=== PATIENT | female | born 1965 | race Caucasian/White ===

== ENCOUNTER 2021-05-19 10:00 | Observation (INO) ==
[2021-08-05] MEDS ORDERED: Furosemide 20 MG TABLET PO PRN (12:39)
[2021-08-05] MEDS ORDERED: Acetaminophen 325 MG TABLET PO PRN (12:48)
[2021-08-05 13:27] LABS: Basophils % 0.3 %; Eosinophils # 0.1 K/mcL (0.0-0.6); Eosinophils % 1.3 %; Hematocrit 40.7 % (35.3-44.9); Hemoglobin 14.2 g/dL (11.5-15.4); Immature Granulocytes % 0.3 % (0-4); Lymphocytes # 1.6 K/mcL (0.6-4.6); Lymphocytes % 24.6 %; Mean Corpuscular HGB Conc 34.9 g/dL (31.6-35.5); Mean Corpuscular Hemoglobin 31.8 pg (28.0-33.3); Mean Corpuscular Volume 91.1 fL (83.0-100.0); Mean Platelet Volume 8.6 fL (9.4-12.4); Monocytes # 0.4 K/mcL (0.0-1.3); Monocytes % 5.8 %; Neutrophils # 4.3 K/mcL (1.6-8.9); Platelet Count 255 K/mcL (140-400); Red Blood Count 4.47 M/mcL (3.82-4.97); Red Cell Distribution Width 12.4 % (11.5-14.5); Segmented Neutrophils % 67.7 %; White Blood Count 6.4 K/mcL (4.3-11.1)
[2021-08-05 14:09] LABS: BUN/Creatinine Ratio 19 (6-26); Blood Urea Nitrogen 16 mg/dL (6-20); Calcium 9.5 mg/dL (8.6-10.3); Carbon Dioxide 26 mEq/L (23-29); Chloride 100 mEq/L (98-107); Glucose 140 mg/dL (70-105); Osmolality,Calculated 285 (280-300); Potassium 3.5 mEq/L (3.5-5.1); Sodium 136 mEq/L (136-145); eGFR For African Americans > 60 (> 60); eGFR For Non-African Americans > 60 (> 60)
[2021-08-05] MEDS: Apixaban 5 MG TABLET PO SCH (22:04)
[2021-08-05] MEDS: DilTIAZem CD (24hr) 120 MG CAP.ER.24H PO SCH (22:04)
[2021-08-06] MEDS ORDERED: lisinopriL 10 MG TABLET PO SCH (09:00)
[2021-08-06] MEDS: Apixaban 5 MG TABLET PO SCH ×2 (09:05→21:19)
[2021-08-06] MEDS: DilTIAZem CD (24hr) 120 MG CAP.ER.24H PO SCH ×2 (09:05→21:19)
[2021-08-06] MEDS: methIMAzole 5 MG TABLET PO SCH (09:05)
[2021-08-06] MEDS: hydroCHLOROthiazide 25 MG TABLET PO SCH (09:05)
[2021-08-07 07:48] VITALS: BP 134/65; PULSE 71; TEMP 98.5; O2SAT 92
[2021-08-07] MEDS: hydroCHLOROthiazide 25 MG TABLET PO SCH (08:38)
[2021-08-07] MEDS: methIMAzole 5 MG TABLET PO SCH (08:38)
[2021-08-07] MEDS: Apixaban 5 MG TABLET PO SCH (08:38)
[2021-08-07] MEDS: DilTIAZem CD (24hr) 120 MG CAP.ER.24H PO SCH (08:39)
[2021-08-08] MEDS ORDERED: hydroCHLOROthiazide 25 MG TABLET PO SCH (09:00)
== END 2021-08-07 14:55 | disposition home or self-care (01) ==
LOC: 2ANU
PROVIDERS: ADMIT Internal Medicine Clinical Cardiac Electrophysiology; ATTEND Internal Medicine Clinical Cardiac Electrophysiology